=== PATIENT | male | born 1995 | race Caucasian/White ===

== ENCOUNTER 2017-03-29 03:31 | Emergency (ER) | payer OTHER ==
[~2017-03-29] VITALS: Ht 175.3 cm; Wt 78.3 kg
[2017-03-29 05:02] VITALS: BP 135/75
== END 2017-03-29 05:02 | disposition home or self-care (01) ==
LOC: EME 03:31
DX: J02.9 Acute pharyngitis, unspecified (principal)
CPT/HCPCS: 87651 90; 99281; 99283